=== PATIENT | female | born 1930 | race Caucasian/White ===

== ENCOUNTER 2018-02-22 07:26 | Day surgery (SDC) | payer MEDICARE ==
[2018-02-22] MEDS: DIAZEPAM 5 MG TAB PO (08:08)
[2018-02-22] MEDS: DIPHENHYDRAMINE 50 MG CAP PO (08:08)
[2018-02-22] MEDS: FAMOTIDINE 20 MG TAB PO (08:08)
[2018-02-22 08:15] LABS: ADD MAN DIFF? NO
[2018-02-22 08:33] LABS: BASOPHIL # 0.1 10^3/ul (0.0-0.1); BASOPHILS % 0.8 % (0.0-2.0); EOSINOPHILS # 0.5 10^3/ul (0.0-0.5); HEMATOCRIT 36.1 % (37.0-47.0); HEMOGLOBIN 11.8 g/dl (12.0-16.0); LYMPHOCYTES # 2.6 10^3/ul (0.8-2.9); LYMPHOCYTES % 35.9 % (15.0-51.0); MEAN CORPUSCULAR HEMOGLOBIN 31.1 pg (29.0-33.0); MEAN CORPUSCULAR HGB CONC 32.7 g/dl (32.0-37.0); MEAN CORPUSCULAR VOLUME 95.3 fl (82.0-101.0); MONOCYTES % 13.8 % (0.0-11.0); NEUTROPHIL # 3.1 10^3/ul (1.6-7.5); NEUTROPHILS % 42.1 % (39.0-77.0); PLATELET COUNT 211 10^3/UL (140-415); RED BLOOD COUNT 3.79 10^6/ul (4.20-5.40); RED CELL DISTRIBUTION WIDTH 13.1 % (11.5-14.5)
[2018-02-22 08:33] LABS: WHITE BLOOD COUNT 7.3 10^3/ul (4.8-10.8)
[2018-02-22 08:46] LABS: INR 0.92; PROTIME 12.5 Sec (11.9-14.9)
[2018-02-22 08:50] LABS: ANION GAP 7 (5-13); BLOOD UREA NITROGEN 19 mg/dl (7-20); CALCIUM 9.1 mg/dl (8.4-10.2); CARBON DIOXIDE 26 mmol/L (21-31); CHLORIDE 107 mmol/L (97-110); CREATININE 0.83 mg/dl (0.44-1.00); GLUCOSE 104 mg/dl (70-220); POTASSIUM 4.7 mmol/L (3.5-5.1); SODIUM 140 mmol/L (135-144)
[2018-02-22 08:52] LABS: PARTIAL THROMBOPLASTIN TIME 24.7 Sec (23.0-35.0)
[2018-02-22] MEDS ORDERED: IODIXANOL LOCM 100 ML BTL (09:31)
[2018-02-22] MEDS ORDERED: LIDOCAINE 1% (MDV) 20 ML INJ (09:31)
[2018-02-22] MEDS ORDERED: MIDAZOLAM 1 MG/ML 2 ML INJ (09:31)
[2018-02-22] MEDS ORDERED: HEPARIN 1000 UNITS/ML 10 ML INJ (09:31)
[2018-02-22] MEDS ORDERED: FENTAnyl 50 MCG/ML VIAL (09:32)
[2018-02-22] MEDS ORDERED: VERAPAMIL 5 MG INJ (09:32)
[2018-02-22] MEDS ORDERED: NITROGLYCERIN (IC) 100 MCG/ML INJ (09:32)
[2018-02-22] MEDS ORDERED: SOD CHLORIDE 0.45% 1,000 ML IV (10:00)
[2018-02-22] MEDS ORDERED: SOD CHLORIDE 0.9% 1,000 ML IV (10:34)
[2018-02-22] MEDS ORDERED: ONDANSETRON 4 MG INJ IV (11:00)
[2018-02-22] MEDS ORDERED: ACETAMINOPHEN 325 MG TAB PO (11:00)
[2018-02-22] MEDS ORDERED: morphine 2 MG INJ IV (11:00)
[2018-02-22] MEDS ORDERED: AL HYDROX/MG HYDROX/SIMETH 30 ML CUP PO (11:00)
== END 2018-02-22 15:30 | disposition home or self-care (01) ==
LOC: SDS 07:26
DX: R06.02 Shortness of breath (principal); R94.39 Abnormal result of other cardiovascular function study; I11.0 Hypertensive heart disease with heart failure; I50.9 Heart failure, unspecified; E78.5 Hyperlipidemia, unspecified; I42.9 Cardiomyopathy, unspecified
CPT/HCPCS: 71045; 80048; 85025; 85610; 85730; 93005; 93458

== ENCOUNTER 2018-05-20 01:00 | Inpatient (IN) | payer MEDICARE ==
[2018-05-20] MEDS: METHYLPREDNISOLONE 125 MG INJ IV ×2 (01:31→08:11)
[2018-05-20 01:33] LABS: ADD MAN DIFF? NO
[2018-05-20 01:34] LABS: ABNORMAL IP MESSAGE 1; BASOPHIL # 0.1 10^3/ul (0.0-0.1); BASOPHILS % 0.3 % (0.0-2.0); HEMATOCRIT 34.8 % (37.0-47.0); HEMOGLOBIN 11.6 g/dl (12.0-16.0); LYMPHOCYTES # 1.5 10^3/ul (0.8-2.9); LYMPHOCYTES % 9.1 % (15.0-51.0); MEAN CORPUSCULAR HEMOGLOBIN 31.4 pg (29.0-33.0); MEAN CORPUSCULAR HGB CONC 33.3 g/dl (32.0-37.0); MEAN CORPUSCULAR VOLUME 94.3 fl (82.0-101.0); MONOCYTE # 2.1 10^3/ul (0.3-0.9); MONOCYTES % 12.8 % (0.0-11.0); NEUTROPHIL # 12.3 10^3/ul (1.6-7.5); PLATELET COUNT 271 10^3/UL (140-415); RED BLOOD COUNT 3.69 10^6/ul (4.20-5.40); RED CELL DISTRIBUTION WIDTH 13.2 % (11.5-14.5)
[2018-05-20 01:35] LABS: POSITIVE DIFF @See below
[2018-05-20] MEDS: IPRATROPIUM (NEB) 0.5 MG/2.5 ML AMP INH (01:37)
[2018-05-20] MEDS: LEVALBUTEROL (NEB) 1.25 MG/0.5 ML AMP INH (01:37)
[2018-05-20 01:51] LABS: ANION GAP 15 (5-13); BLOOD UREA NITROGEN 15 mg/dl (7-20); CALCIUM 9.3 mg/dl (8.4-10.2); CARBON DIOXIDE 22 mmol/L (21-31); CHLORIDE 91 mmol/L (97-110); CREATININE 0.54 mg/dl (0.44-1.00); GLUCOSE 230 mg/dl (70-220); POTASSIUM 4.3 mmol/L (3.5-5.1); SODIUM 128 mmol/L (135-144)
[2018-05-20 01:54] LABS: INR 1.01; PARTIAL THROMBOPLASTIN TIME 22.6 Sec (23.0-35.0); PROTIME 13.4 Sec (11.9-14.9)
[2018-05-20 02:02] LABS: B-TYPE NATRIURETIC PEPTIDE 16400 PG/ML (0-450)
[2018-05-20] MEDS: GUAIFENESIN/CODEINE 5ML CUP PO (05:59)
[2018-05-20] MEDS: FUROSEMIDE 40 MG INJ IV ×2 (05:59→17:42)
[2018-05-20] MEDS ORDERED: NACL 0.9% 3 ML SYG IV (06:00)
[2018-05-20] MEDS: LEVALBUTEROL (NEB) 0.63 MG/3 ML AMP HHN ×5 (06:18→20:08)
[2018-05-20] MEDS: IPRATROPIUM (NEB) 0.5 MG/2.5 ML AMP NEB (06:18)
[2018-05-20] MEDS: FUROSEMIDE 20 MG INJ IV (08:13)
[2018-05-20] MEDS: SPIRONOLACTONE 25 MG TAB PO (08:14)
[2018-05-20] MEDS: LEVOFLOXACIN 500MG/D5W (PMX) 100 ML IVPB (08:14)
[2018-05-20] MEDS: BENAZEPRIL 40 MG TAB PO (08:15)
[2018-05-20] MEDS: CLOPIDOGREL 75 MG TAB PO (08:15)
[2018-05-20] MEDS: ASPIRIN (EC) 81 MG TAB PO (08:15)
[2018-05-20] MEDS: HEPARIN 5,000 UNIT/1 ML VIAL SC ×2 (08:28→21:31)
[2018-05-20] MEDS: IPRATROPIUM (NEB) 0.5 MG/2.5 ML AMP HHN ×4 (09:50→20:08)
[2018-05-20] MEDS: SODIUM CHLORIDE 1 GM TAB PO ×2 (10:56→21:29)
[2018-05-20] MEDS: ACETAMINOPHEN 325 MG TAB PO (10:56)
[2018-05-20] MEDS ORDERED: LEVOFLOXACIN 750MG/D5W (PMX) 150 ML IVPB (11:30)
[2018-05-20 12:41] LABS: HEMOGLOBIN A1C 5.5 % (0-5.9)
[2018-05-20 12:44] LABS: ADD UMIC YES; UR ASCORBIC ACID NEGATIVE (NEGATIVE); UR BACTERIA FEW /HPF (NONE SEEN); UR BILIRUBIN (Dip) NEGATIVE (NEGATIVE); UR BLOOD (Dip) 2+ mg/dL (NEGATIVE); UR CLARITY CLEAR (CLEAR); UR COLOR STRAW (YELLOW); UR GLUCOSE (Dip) NEGATIVE (NEGATIVE); UR KETONES (Dip) NEGATIVE (NEGATIVE); UR LEUKOCYTE ESTERASE (Dip) NEGATIVE Leu/ul (NEGATIVE); UR NITRITE (Dip) NEGATIVE (NEGATIVE); UR RBC 1 /HPF (0-5); UR SPECIFIC GRAVITY (Dip) 1.008 (1.003-1.030); UR TOTAL PROTEIN (Dip) NEGATIVE (NEGATIVE); UR UROBILINOGEN (Dip) NEGATIVE (NEGATIVE); UR WBC 3 /HPF (0-5)
[2018-05-20 18:58] LABS: TROPONIN-I 0.076 ng/ml (0.000-0.120)
[2018-05-20] MEDS: ATORVASTATIN 20 MG TAB PO (21:29)
[2018-05-20] MEDS: ONDANSETRON 4 MG INJ IV (22:04)
[2018-05-21] MEDS: LEVALBUTEROL (NEB) 0.63 MG/3 ML AMP HHN ×5 (01:41→17:18)
[2018-05-21] MEDS: IPRATROPIUM (NEB) 0.5 MG/2.5 ML AMP HHN ×3 (01:41→09:20)
[2018-05-21 01:54] LABS: TROPONIN-I 0.084 ng/ml (0.000-0.120)
[2018-05-21] MEDS: FUROSEMIDE 40 MG INJ IV ×2 (06:20→17:37)
[2018-05-21] MEDS: SODIUM CHLORIDE 1 GM TAB PO ×2 (08:29→20:35)
[2018-05-21] MEDS: METHYLPREDNISOLONE 125 MG INJ IV (08:30)
[2018-05-21] MEDS: ASPIRIN (EC) 81 MG TAB PO (08:30)
[2018-05-21] MEDS: CLOPIDOGREL 75 MG TAB PO (08:30)
[2018-05-21] MEDS: BENAZEPRIL 40 MG TAB PO (08:30)
[2018-05-21] MEDS: LEVOFLOXACIN 500MG/D5W (PMX) 100 ML IVPB (08:30)
[2018-05-21 08:32] LABS: ADD MAN DIFF? NO
[2018-05-21] MEDS: GUAIFENESIN/CODEINE 5ML CUP PO (08:37)
[2018-05-21 08:39] LABS: WHITE BLOOD COUNT 14.7 10^3/ul (4.8-10.8)
[2018-05-21 08:39] LABS: ABNORMAL IP MESSAGE 1; BASOPHILS % 0.1 % (0.0-2.0); HEMOGLOBIN 12.3 g/dl (12.0-16.0); LYMPHOCYTES # 1.5 10^3/ul (0.8-2.9); LYMPHOCYTES % 10.2 % (15.0-51.0); MEAN CORPUSCULAR HEMOGLOBIN 31.4 pg (29.0-33.0); MEAN CORPUSCULAR HGB CONC 33.2 g/dl (32.0-37.0); MEAN CORPUSCULAR VOLUME 94.4 fl (82.0-101.0); MEAN PLATELET VOLUME 10.2 fl (7.4-10.4); MONOCYTE # 1.9 10^3/ul (0.3-0.9); MONOCYTES % 12.7 % (0.0-11.0); NEUTROPHIL # 11.2 10^3/ul (1.6-7.5); NEUTROPHILS % 76.3 % (39.0-77.0); PLATELET COUNT 282 10^3/UL (140-415); RED BLOOD COUNT 3.92 10^6/ul (4.20-5.40); RED CELL DISTRIBUTION WIDTH 13.4 % (11.5-14.5)
[2018-05-21] MEDS: ONDANSETRON 4 MG INJ IV ×2 (08:43→20:39)
[2018-05-21 08:46] LABS: POSITIVE DIFF @See below
[2018-05-21] MEDS: HEPARIN 5,000 UNIT/1 ML VIAL SC ×2 (08:51→20:37)
[2018-05-21 09:04] LABS: ALANINE AMINOTRANSFERASE 14 IU/L (13-69); ALBUMIN 4.2 g/dl (3.3-4.9); ALKALINE PHOSPHATASE 68 IU/L (42-121); ANION GAP 14 (5-13); ASPARTATE AMINO TRANSFERASE 31 IU/L (15-46); BILIRUBIN,INDIRECT 0.4 mg/dl (0-1.1); BILIRUBIN,TOTAL 0.4 mg/dl (0.2-1.3); BLOOD UREA NITROGEN 20 mg/dl (7-20); CALCIUM 9.5 mg/dl (8.4-10.2); CARBON DIOXIDE 30 mmol/L (21-31); CHLORIDE 90 mmol/L (97-110); CREATININE 0.62 mg/dl (0.44-1.00); GLUCOSE 145 mg/dl (70-220); MAGNESIUM 2.2 mg/dl (1.7-2.5); POTASSIUM 3.8 mmol/L (3.5-5.1); SODIUM 134 mmol/L (135-144); TOTAL PROTEIN 7.2 g/dl (6.1-8.1)
[2018-05-21 09:14] LABS: TROPONIN-I 0.067 ng/ml (0.000-0.120)
[2018-05-21 13:00] LABS: TROPONIN-I 0.052 ng/ml (0.000-0.120)
[2018-05-21] MEDS: IPRATROPIUM (NEB) 0.5 MG/2.5 ML AMP NEB ×2 (14:02→17:18)
[2018-05-21 19:01] LABS: TROPONIN-I 0.047 ng/ml (0.000-0.120)
[2018-05-21] MEDS: ATORVASTATIN 20 MG TAB PO (20:35)
[2018-05-22 01:26] LABS: TROPONIN-I 0.056 ng/ml (0.000-0.120)
[2018-05-22] MEDS: FUROSEMIDE 40 MG INJ IV ×2 (05:31→17:41)
[2018-05-22 06:20] LABS: ADD MAN DIFF? NO
[2018-05-22 06:29] LABS: ABNORMAL IP MESSAGE 1; BASOPHILS % 0.1 % (0.0-2.0); HEMATOCRIT 37.6 % (37.0-47.0); HEMOGLOBIN 12.3 g/dl (12.0-16.0); LYMPHOCYTES # 2.2 10^3/ul (0.8-2.9); LYMPHOCYTES % 13.8 % (15.0-51.0); MEAN CORPUSCULAR HEMOGLOBIN 31.3 pg (29.0-33.0); MEAN CORPUSCULAR HGB CONC 32.7 g/dl (32.0-37.0); MEAN CORPUSCULAR VOLUME 95.7 fl (82.0-101.0); MEAN PLATELET VOLUME 9.7 fl (7.4-10.4); MONOCYTE # 2.1 10^3/ul (0.3-0.9); NEUTROPHIL # 11.4 10^3/ul (1.6-7.5); NEUTROPHILS % 72.1 % (39.0-77.0); PLATELET COUNT 326 10^3/UL (140-415); RED BLOOD COUNT 3.93 10^6/ul (4.20-5.40); RED CELL DISTRIBUTION WIDTH 13.6 % (11.5-14.5)
[2018-05-22 06:29] LABS: WHITE BLOOD COUNT 15.8 10^3/ul (4.8-10.8)
[2018-05-22 06:35] LABS: POSITIVE DIFF @See below
[2018-05-22 06:44] LABS: ANION GAP 9 (5-13); BLOOD UREA NITROGEN 29 mg/dl (7-20); CALCIUM 9.5 mg/dl (8.4-10.2); CARBON DIOXIDE 33 mmol/L (21-31); CHLORIDE 93 mmol/L (97-110); GLUCOSE 147 mg/dl (70-220); SODIUM 135 mmol/L (135-144)
[2018-05-22 06:59] LABS: MAGNESIUM 2.3 mg/dl (1.7-2.5)
[2018-05-22] MEDS: CLOPIDOGREL 75 MG TAB PO (08:53)
[2018-05-22] MEDS: SODIUM CHLORIDE 1 GM TAB PO (08:53)
[2018-05-22] MEDS: METHYLPREDNISOLONE 125 MG INJ IV (08:54)
[2018-05-22] MEDS: BENAZEPRIL 40 MG TAB PO (08:54)
[2018-05-22] MEDS: LEVOFLOXACIN 500MG/D5W (PMX) 100 ML IVPB (08:54)
[2018-05-22] MEDS: ASPIRIN (EC) 81 MG TAB PO (08:54)
[2018-05-22] MEDS: HEPARIN 5,000 UNIT/1 ML VIAL SC ×2 (09:01→20:44)
[2018-05-22] MEDS: ATORVASTATIN 20 MG TAB PO (20:39)
[2018-05-23] MEDS: FUROSEMIDE 40 MG INJ IV ×2 (05:44→18:18)
[2018-05-23] MEDS: CLOPIDOGREL 75 MG TAB PO (08:47)
[2018-05-23] MEDS: ASPIRIN (EC) 81 MG TAB PO (08:47)
[2018-05-23] MEDS: BENAZEPRIL 40 MG TAB PO (08:48)
[2018-05-23] MEDS: METHYLPREDNISOLONE 125 MG INJ IV (08:49)
[2018-05-23] MEDS: ACETAMINOPHEN 325 MG TAB PO (08:56)
[2018-05-23] MEDS: HEPARIN 5,000 UNIT/1 ML VIAL SC ×2 (09:05→20:15)
[2018-05-23 11:51] LABS: NIL 0.02 IU/mL; QUANTIFERON(R)-TB GOLD NEGATIVE (NEGATIVE)
[2018-05-23] MEDS: ATORVASTATIN 20 MG TAB PO (20:10)
[2018-05-23] MEDS: SENNA TAB PO (20:10)
[2018-05-24] MEDS: FUROSEMIDE 40 MG INJ IV (06:19)
[2018-05-24] MEDS: CLOPIDOGREL 75 MG TAB PO (08:10)
[2018-05-24] MEDS: SENNA TAB PO ×2 (08:10→20:13)
[2018-05-24] MEDS: METHYLPREDNISOLONE 125 MG INJ IV (08:10)
[2018-05-24] MEDS: ASPIRIN (EC) 81 MG TAB PO (08:10)
[2018-05-24] MEDS: BENAZEPRIL 40 MG TAB PO (08:11)
[2018-05-24] MEDS: HEPARIN 5,000 UNIT/1 ML VIAL SC ×2 (08:22→20:20)
[2018-05-24] MEDS: POLYETHYLENE GLYCOL 17 GM PACKET PO ×2 (10:30→16:22)
[2018-05-24] MEDS: NA PHOSPHATE/BIPHOS 133 ML ENEMA PR (20:12)
[2018-05-24] MEDS: ATORVASTATIN 20 MG TAB PO (20:12)
[2018-05-25] MEDS: METHYLPREDNISOLONE 125 MG INJ IV (08:40)
[2018-05-25] MEDS: BENAZEPRIL 40 MG TAB PO (08:41)
[2018-05-25] MEDS: ASPIRIN (EC) 81 MG TAB PO (08:41)
[2018-05-25] MEDS: CLOPIDOGREL 75 MG TAB PO (08:41)
[2018-05-25] MEDS: SENNA TAB PO (08:41)
[2018-05-25] MEDS: HEPARIN 5,000 UNIT/1 ML VIAL SC (08:45)
[2018-05-25] MEDS: ACETAMINOPHEN 325 MG TAB PO (09:20)
[2018-05-25] MEDS ORDERED: LOPERAMIDE 2 MG CAP PO (10:00)
== END 2018-05-25 10:45 | disposition home or self-care (01) | DRG 292 ==
LOC: E/R 01:00 → TEL 03:20
PROVIDERS: Internal Medicine
PROC: 3E0F7GC Introduction of Other Therapeutic Substance into Respiratory Tract, Via Natural or Artificial Opening (ICD-10-PCS; principal; 2018-05-20)
DX: I11.0 Hypertensive heart disease with heart failure (principal); E87.1 Hypo-osmolality and hyponatremia; I50.23 Acute on chronic systolic (congestive) heart failure; I42.9 Cardiomyopathy, unspecified; E11.65 Type 2 diabetes mellitus with hyperglycemia; R06.00 Dyspnea, unspecified; D64.9 Anemia, unspecified; E78.5 Hyperlipidemia, unspecified; I25.10 Atherosclerotic heart disease of native coronary artery without angina pectoris; D72.829 Elevated white blood cell count, unspecified; J20.9 Acute bronchitis, unspecified; R91.8 Other nonspecific abnormal finding of lung field; J45.909 Unspecified asthma, uncomplicated
CPT/HCPCS: 71045; 71250; 80048; 80053; 81001; 83036; 83735; 83880; 84100; 84443; 84484; 85025; 85610; 85730; 86480; 86635; 86698; 87040-91; 87086; 90686; 93005; 93306; 94640; 94644; 94664; 96374; 96375; 97161; 97165; 99291-25